=== PATIENT | female | born 2000 ===

== ENCOUNTER 2021-08-30 08:36 | Day surgery (SDC) | payer OTHER ==
[~2021-08-30] VITALS: Ht 152.4 cm; Wt 56.7 kg
[~2021-08-30 08:36] MED LIST: SYNTHROID200 MCG PO
[2021-08-30] MEDS ORDERED: PERCOCET 5-3251 EACH PO (14:01)
[2021-08-31] MEDS ORDERED: ENDOCET 5-3251 EACH PO (20:01)
== END 2021-08-30 16:10 | disposition home or self-care (01) ==
LOC: CIR.AMB 08:36
PROVIDERS: ATTEND Surgery
DX: E04.2 Nontoxic multinodular goiter (principal); E06.3 Autoimmune thyroiditis; R59.0 Localized enlarged lymph nodes; Z20.822 Contact with and (suspected) exposure to COVID-19; J45.909 Unspecified asthma, uncomplicated

== ENCOUNTER 2021-08-31 19:18 | Emergency (ER) | payer OTHER ==
[~2021-08-31] VITALS: Ht 152.4 cm; Wt 50.3 kg
[~2021-08-31 19:18] MED LIST changes: +PERCOCET 5-3251 EACH PO
[2021-08-31] MEDS ORDERED: ENDOCET 5-3251 EACH PO (20:01)
== END 2021-08-31 23:39 | disposition home or self-care (01) ==
LOC: ER 19:18
DX: M54.2 Cervicalgia (principal); E89.0 Postprocedural hypothyroidism

== ENCOUNTER 2022-05-14 11:12 | Emergency (ER) | payer OTHER ==
[~2022-05-14] VITALS: Ht 152.4 cm; Wt 49.4 kg
[~2022-05-14 11:12] MED LIST changes: +ENDOCET 5-3251 EACH PO
== END 2022-05-14 13:57 | disposition home or self-care (01) ==
LOC: ER 11:12
DX: E03.9 Hypothyroidism, unspecified (principal); R51.9 Headache, unspecified